=== PATIENT | female | born 1955 | race Caucasian/White ===

== ENCOUNTER 2017-05-05 13:54 | Emergency (ER) | payer OTHER ==
[~2017-05-05] VITALS: Ht 157.5 cm; Wt 56.7 kg
[~2017-05-05 13:54] MED LIST: PERCOCET 325 MG-5 MG PO; PERCOCET 325 MG1 TA2 PO
[2017-05-05 14:11] VITALS: BP 126/74
--- NOTE | 2017-05-05 15:14 | RADIOLOGY REPORT ---
EXAMINATION: XR CHEST CLINICAL INFORMATION: Productive cough. COMPARISON: None TECHNIQUE: 2 views of the chest were obtained. FINDINGS: Lungs are symmetrically expanded and clear. No evidence of pulmonary mass, consolidation or pleural effusion. Cardiac silhouette is normal in size. The mediastinal, hilar and diaphragmatic contours are normal. Bones subjectively appear diffusely osteopenic. No acute skeletal findings. IMPRESSION: No evidence of pneumonia.
--- NOTE | 2017-05-05 15:43 | ED DYSPNEA/ASTHMA COMPLAINT ---
History of Present Illness General Chief Complaint: General Adult Stated Complaint: SOB Source: patient Exam Limitations: no limitations Vital Signs & Intake/Output Vital Signs & Intake/Output Vital Signs Date Time Temp Pulse Resp B/P B/P Pulse O2 O2 Flow FiO2 Mean Ox Delivery Rate 05/05 1540 84 16 96 Room Air 05/05 1540 96 05/05 1442 96 Room Air 05/05 1411 97.5 91 20 126/74 96 Room Air Room Air Allergies Coded Allergies: NO KNOWN ALLERGIES (05/20/12) Triage Note: PT TO ED WITH C/O SOB X 3 WEEKS, WORSE LAST NIGHT, TAKING MUCINEX AT HOME, COUGHING. Triage Nurses Notes Reviewed? yes HPI: Patient presents for evaluation of worsening and more or less constant shortness of breath that began gradually about 1-2 weeks ago. Patient states that she had an episode of fever and muscle aches a little over 2 weeks ago that led to chest congestion and a productive cough. This then led to difficulty sleeping. The fever and cough have resolved. The patient is now currently experiencing shortness of breath with associated chest tightness and wheezing. She has been placed on an asthma inhaler in the past but does not have this currently. Past History Travel History Traveled to [place] past 21 day No Medical History Any Pertinent Medical History? see below for history Neurological: NONE EENT: NONE Cardiovascular: NONE Respiratory: asthma, bronchitis, COPD Gastrointestinal: pancreatitis Hepatic: NONE Renal: NONE Musculoskeletal: NONE Psychiatric: anxiety Endocrine: NONE Blood Disorders: NONE Cancer(s): NONE [employer]LEGE ADVISOR/Reproductive: NONE Surgical History Surgical History: non-contributory Psychosocial History What is your primary language Romansh Tobacco Use: Current Daily Use Daily Tobacco Use Amount/Type: => 5 Cigarettes daily ETOH Use: occasional use Illicit Drug Use: denies illicit drug use Family History Hx Contributory? No Review of Systems Review of Systems Constitutional: Reports: no symptoms. EENTM: Reports: no symptoms. Respiratory: Reports: see HPI. Cardiovascular: Reports: chest pain. GI: Reports: no symptoms. Genitourinary: Reports: no symptoms. Musculoskeletal: Reports: no symptoms. Skin: Reports: no symptoms. Neurological/Psychological: Reports: no symptoms. Hematologic/Endocrine: Reports: no symptoms. Immunologic/Allergic: Reports: no symptoms. All Other Systems: Reviewed and Negative Physical Exam Physical Exam Respiratory: SEE BELOW Comments: Gen.: Well-nourished, well-developed, no acute respiratory distress. Head: Normocephalic, atraumatic. Eyes: Normal inspection bilaterally Ears: Normal inspection bilaterally Nose: Normal inspection Throat/mouth : Moist mucosa Neck: Supple, full range of motion, no goiter Heart: Regular rate and rhythm, no murmurs rubs or gallops Lungs: Bleed diminished breath sounds with end expiratory wheezing posteriorly, no crackles or rhonchi Chest: Nontender Back: Normal range of motion Abdomen: Soft, nontender, nondistended, normal bowel sounds Extremities: Normal range of motion grossly, equal radial pulses, no cyanosis clubbing or edema and no peripheral edema, calves nontender Neurologic: Cranial nerves grossly intact, speech is clear Skin: warm and dry Psychiatric: Calm, cooperative, no apparent delusions or hallucinations Core Measures ACS in differential dx? No Severe Sepsis Present: No Septic Shock Present: No Progress Differential Diagnosis: asthma, bronchitis, COPD, pneumonia Plan of Care: Combivent inhaler, Flovent inhaler, follow-up pulmonary Initial ED EKG: none Departure Departure Disposition: HOME OR SELF CARE Condition: Stable Clinical Impression Primary Impression: COPD exacerbation Referrals: PATIENT HAS NO PRIMARY CARE DR (PCP/Family) Departure Forms: Customer Survey General Discharge Information Prescriptions: Current Visit Scripts Ipratropium/Albuterol Sulfate (Combivent Respimat Inhal [place]) 2 INH INH Q6 PRN trouble breathing #1 INHAL Fluticasone Propionate (Flovent Hfa) 2 PUF INH BID #10.6 GM Critical Care Note Critical Care Note Critical Care Time: 30-74 min
[2017-05-05] MEDS ORDERED: COMBIVENT RESPIM4 GM INH (15:59)
[2017-05-05] MEDS ORDERED: FLOVENT HFA10.6 GM INH (15:59)
[2017-05-05] MEDS ORDERED: NICODERM CQ1 EAC1 TOP (16:01)
== END 2017-05-05 16:03 ==
LOC: ERH 13:54
DX: J44.1 Chronic obstructive pulmonary disease with (acute) exacerbation (principal); R07.89 Other chest pain; F17.210 Nicotine dependence, cigarettes, uncomplicated
CPT/HCPCS: 1263